=== PATIENT | male | born 1945 | race African-American/Black ===

== ENCOUNTER 2017-05-19 11:59 | Emergency (ER) | payer MEDICARE, MEDICAID ==
[2017-05-19] MEDS ORDERED: cefTRIAXone(*) 1 GM in NS 0.9% 50 ML* 50 ML IVPB ONE (13:04)
[2017-05-19] MEDS ORDERED: Azithromycin IV(*) 500 MG in NS 0.9% 250 ML* 250 ML IVPB ONE (13:04)
[2017-05-19] MEDS ORDERED: NS 0.9% 1000 ML* 1,000 ML IV ONE (13:05)
[2017-05-19] MEDS ORDERED: methylPREDNISolone 125 MG* 2 ML VIAL IV ONE (13:07)
[2017-05-19] MEDS ORDERED: Albuterol/Ipratropium NEB.SOL* Albuterol 2.5 MG/Ipratropium 0.5 MG 3 ML INH ONE (13:17)
[2017-05-19 13:23] LABS: ABS Basophils 0 10^3/ul (0-0.2); ABS Eosinophils 0 10^3/ul (0-0.6); ABS Lymphocytes 0.2 10^3/ul (1.0-4.8); ABS Monocytes 0.8 10^3/ul (0-0.8); ABS Neutrophils 5.8 10^3/ul (1.5-7.7); ABS Nucleated RBC 0 10^3/ul; Eosinophil % 0 % (0-6); Hematocrit 44 % (42-52); Hemoglobin 15.3 g/dl (14.0-18.0); Lymphocyte % 2.7 % (25-47); Mean Corpuscular HGB Conc 35 g/dl (31-36); Mean Corpuscular Hemoglobin 33 pg (27-31); Mean Corpuscular Volume 96 fL (80-94); Mean Platelet Volume 8.3 um3 (7.4-10.4); Nucleated Red Blood Cells % 0; Platelet Count 164 10^3/ul (150-450); Red Cell Distribution Width 14 % (10.5-15); White Blood Count 6.8 10^3/ul (3.5-10.8)
--- NOTE | 2017-05-19 13:31 | RAD ---
INDICATION: Shortness of breath. COMPARISON: None TECHNIQUE: PA and lateral views of the chest were obtained. FINDINGS: The heart and mediastinum are normal in size and contour. On the AP view the lungs appear hyperaerated. On the lateral view the diaphragm are flattened and there is an increased retrosternal airspace. Also the lateral view there is density obscuring the left costophrenic angle. On the AP view there is only a slight degree of costophrenic angle blunting. Visualized bones are normal for the patient's age. There is no radiographic evidence of free air beneath the diaphragm IMPRESSION: 1. DENSITY CAUSING A SMALL DEGREE OF LEFT POSTERIOR LUNG BASE COSTOPHRENIC ANGLE BLUNTING COULD BE A SMALL PLEURAL EFFUSION AND/OR CONSOLIDATION. 2. STIGMATA OF CHRONIC OBSTRUCTIVE PULMONARY DISEASE IS NOTED.
[2017-05-19 13:41] LABS: EGFR Non-African American 121.4 (>60)
--- NOTE | 2017-05-19 15:00 | ED ---
Vianca Pelayo Emily, scribed for oTrito De Leon MD on 05/19/17 at 1309 . Shortness of Breath - HPI Summary HPI Summary: This patient is a 71 year old M presenting to [facility] with a chief complaint of SOB that began yesterday. The patient rates the pain 0/10 in severity. Symptoms aggravated by nothing. Symptoms alleviated by nothing. Patient reports cough ( coronado-yellow phlegm, that began 3 days ago) and weakness. Patient denies CP. - History of Current Complaint Chief Complaint: EDShortnessOfBreath Time Seen by Provider: 05/19/17 12:49 Hx Obtained From: Patient Onset/Duration: Sudden Onset, Lasting Days, Still Present Timing: Constant Current Severity: Mild Aggrevating Factors: Nothing Alleviating Factors: Nothing Associated Signs & Symptoms: Cough (Productive) - Allergy/Home Medications Allergies/Adverse Reactions: Allergies Allergy/AdvReac Type Severity Reaction Status Date / Time No Known Allergies Allergy Verified 05/19/17 12:29 PMH/Surg Hx/FS Hx/Imm Hx Previously Healthy: Yes Opthamlomology History: Denies: Hx Legally Blind EENT History: Denies: Hx Deafness Infectious Disease History: No Infectious Disease History: Denies: Traveled Outside the [place] in Last 30 Days - Family History Known Family History: Positive: Other - Negative kidney stones - Social History Occupation: Retired Lives: Alone Alcohol Use: None Hx Substance Use: Yes Substance Use Type: Reports: Marijuana Smoking Status (MU): Never Smoked Tobacco Review of Systems Negative: Chest Pain Positive: Shortness Of Breath, Cough Positive: Weakness All Other Systems Reviewed And Are Negative: Yes Physical Exam - Summary Physical Exam Summary: Appearance: Well-appearing, Well-nourished Skin: Warm Eyes: Normal ENT: Normal Neck: Supple, nontender Respiratory: Bilateral diffuse expiratory wheezes. 2L nasal cannula. Cardiovascular: Regular rate, regular rhythm. Normal S1, S2. Abdomen: Soft, nontender Musculoskeletal: Normal, Strength/ROM Intact Neurological: Normal, A&Ox3 Psychiatric: Normal General: No acute distress Triage Information Reviewed: Yes Vital Signs On Initial Exam: Initial Vitals Temp Pulse Resp BP Pulse Ox 98.7 F 107 22 144/101 93 05/19/17 12:04 05/19/17 12:04 05/19/17 12:04 05/19/17 12:04 05/19/17 12:04 Vital Signs Reviewed: Yes Diagnostics - Vital Signs Vital Signs Temp Pulse Resp BP Pulse Ox 05/19/17 12:04 98.7 F 107 22 144/101 93 - Laboratory Lab Results: Lab Results 05/19/17 05/19/17 Range/Units 13:10 13:10 WBC 6.8 (3.5-10.8) 10^3/ul RBC 4.60 (4.0-5.4) 10^6/ul Hgb 15.3 (14.0-18.0) g/dl Hct 44 (42-52) % MCV 96 H (80-94) fL MCH 33 H (27-31) pg MCHC 35 (31-36) g/dl RDW 14 (10.5-15) % Plt Count 164 (150-450) 10^3/ul MPV 8.3 (7.4-10.4) um3 Neut % (Auto) 85.7 H (38-83) % Lymph % (Auto) 2.7 L (25-47) % Hooker % (Auto) 11.4 H (0-7) % Eos % (Auto) 0 (0-6) % Baso % (Auto) 0.2 (0-2) % Absolute Neuts (auto) 5.8 (1.5-7.7) 10^3/ul Absolute Lymphs (auto) 0.2 L (1.0-4.8) 10^3/ul Absolute Monos (auto) 0.8 (0-0.8) 10^3/ul Absolute Eos (auto) 0 (0-0.6) 10^3/ul Absolute Basos (auto) 0 (0-0.2) 10^3/ul Absolute Nucleated RBC 0 10^3/ul Nucleated RBC % 0 Sodium 135 L (139-145) mmol/L Potassium 3.2 L (3.5-5.0) mmol/L Chloride 95 L (101-111) mmol/L Carbon Dioxide 29 (22-32) mmol/L Anion Gap 11 (2-11) mmol/L BUN 8 (6-24) mg/dL Creatinine 0.65 L (0.67-1.17) mg/dL Est GFR ( Amer) 156.2 (>60) Est GFR (Non-Af Amer) 121.4 (>60) BUN/Creatinine Ratio 12.3 (8-20) Glucose 129 H (70-100) mg/dL Calcium 8.9 (8.6-10.3) mg/dL Total Bilirubin 0.60 (0.2-1.0) mg/dL AST 106 H (13-39) U/L ALT 21 (7-52) U/L Alkaline Phosphatase 62 (34-104) U/L Troponin I 0.02 (<0.04) ng/mL Total Protein 7.9 (6.4-8.9) g/dL Albumin 3.9 (3.2-5.2) g/dL Globulin 4.0 (2-4) g/dL Albumin/Globulin Ratio 1.0 (1-3) Result Diagrams: 05/19/17 13:10 05/19/17 13:10 Lab Statement: Any lab studies that have been ordered have been reviewed, and results considered in the medical decision making process. - Radiology CXR Radiology Interpretation Completed By: Radiologist - CXR reveals, per radiologist, 1. DENSITY CAUSING A SMALL DEGREE OF LEFT POSTERIOR LUNG BASE COSTOPHRENIC ANGLE BLUNTING COULD BE A SMALL PLEURAL EFFUSION AND/OR CONSOLIDATION. 2. STIGMATA OF CHRONIC OBSTRUCTIVE PULMONARY DISEASE IS NOTED. ED physician has reviewed this radiology report. Course/Dx - Course Course Of Treatment: CXR B/L perihilar densities, increased lung volumes likely COPD. labs unremarkable - Diagnoses Provider Diagnoses: Bronchitis, COPD exacerbation Discharge - Sign-Out/Discharge Documenting (check all that apply): Discharge - Discharge Plan Condition: Stable Disposition: HOME Prescriptions: Levofloxacin TAB* [Levaquin TAB*] 500 mg PO DAILY 7 Days #7 tab predniSONE [Prednisone] 20 mg PO DAILY 5 Days #5 tablet Patient Education Materials: Acute Bronchitis (ED), COPD (Chronic Obstructive Pulmonary Disease) (ED) Referrals: Filemon Acevedo MD [Primary Care Provider] - - Billing Disposition and Condition Condition: STABLE Disposition: HOME The documentation as recorded by the Vianca escobar Emily accurately reflects the service I personally performed and the decisions made by Moises valderrama Euni, MD.
[2017-05-19 15:08] VITALS: BP 143/88
== END 2017-05-19 15:15 | disposition home or self-care (01) ==
LOC: ED 11:59
DX: J44.1 Chronic obstructive pulmonary disease with (acute) exacerbation (principal); R05 Cough; R53.1 Weakness
CPT/HCPCS: 36415; 71046; 80053; 84484; 85025; 87040; 96365; 96375; 99284; A9270-GY; J0456; J0696; J2930

== ENCOUNTER 2019-02-04 00:58 | Emergency (ER) | payer MEDICARE, MEDICAID ==
--- NOTE | 2019-02-04 01:22 | ED ---
Shortness of Breath - HPI Summary HPI Summary: 73 y/o male presented to [facility] complaining of SOB that started yesterday. He characterizes his symptoms as being tired and having no energy. He does not claim to have a fever or rhinorrhea. Patient was seen previously for a similar issue roughly a year ago and discharged. He smokes marijuana but has not smoked today due to his respiratory complaints. He drinks alcohol daily and had roughly 3 servings today, but does not think his symptoms are due to withdrawal. He notes no history of heart or lung problems and notes no family history related to the CC. - History of Current Complaint Chief Complaint: EDUpperRespComplaint Time Seen by Provider: 02/04/19 01:08 Hx Obtained From: Patient Onset/Duration: Lasting Days, Still Present Timing: Intermittent Episodes Lasting: - only on exertion Dyspnea At: Exertion Aggravating Factors: Other - exertion Alleviating Factors: Other - rest Associated Signs & Symptoms: Negative - Allergy/Home Medications Allergies/Adverse Reactions: Allergies Allergy/AdvReac Type Severity Reaction Status Date / Time No Known Allergies Allergy Verified 02/04/19 01:00 PMH/Surg Hx/FS Hx/Imm Hx Cardiovascular History: Denies: Hx Cardiac Arrest, Hx Congenital Heart Disease, Hx Congestive Heart Failure, Hx Coronary Artery Disease Sensory History: Denies: Hx Legally Blind, Hx Deafness Opthamlomology History: Denies: Hx Legally Blind - Surgical History Surgical History: None Infectious Disease History: No Infectious Disease History: Denies: Traveled Outside the [place] in Last 30 Days - Family History Known Family History: Positive: Other - Negative kidney stones Negative: Cardiac Disease - Social History Alcohol Use: None Hx Substance Use: Yes Substance Use Type: Reports: Marijuana Smoking Status (MU): Never Smoked Tobacco Review of Systems Negative: Fever Negative: Nasal Discharge Positive: Shortness Of Breath - on exertion All Other Systems Reviewed And Are Negative: Yes Physical Exam - Summary Physical Exam Summary: Constitutional: Well-developed, Well-nourished, Alert. (-) Distressed, Elderly, Thin Skin: Warm, Dry HENT: Normocephalic; Atraumatic Eyes: Conjunctiva normal Neck: Musculoskeletal ROM normal neck. (+) JVD, (-) Stridor, (-) Nuchal rigidity Cardio: Rhythm regular, rate normal, Heart sounds normal; Intact distal pulses; Radial pulses are 2+ and symmetric. (-) Murmur Pulmonary/Chest wall: Effort normal. (-) Respiratory distress, (-) Wheezes, (-) Rales. Abd: Soft, (-) tenderness, (-) Distension, (-) Guarding, (-) Rebound Musculoskeletal: (-) Edema Neuro: Alert, Oriented x3 Psych: Mood and affect Normal Triage Information Reviewed: Yes Vital Signs On Initial Exam: Initial Vitals Temp Pulse Resp BP Pulse Ox 98.5 F 104 32 174/109 88 02/04/19 00:58 02/04/19 00:58 02/04/19 00:58 02/04/19 00:58 02/04/19 00:58 Vital Signs Reviewed: Yes Procedures - Sedation Patient Received Moderate/Deep Sedation with Procedure: No Diagnostics - Vital Signs Vital Signs Temp Pulse Resp BP Pulse Ox 02/04/19 01:08 92 18 165/96 91 02/04/19 01:07 89 19 91 02/04/19 00:58 98.5 F 104 32 174/109 88 - Laboratory Result Diagrams: 02/04/19 01:37 02/04/19 01:37 Lab Statement: Any lab studies that have been ordered have been reviewed, and results considered in the medical decision making process. - Radiology CXR Radiology Interpretation Completed By: ED Physician Summary of Radiographic Findings: Decreased lung marking in left lower lobe. Concern for bleb. This imaging study has been reviewed and interpreted by the ED physician pending official read. - CT chest/thorax CT Interpretation Completed By: Radiologist Summary of CT Findings: IMPRESSION: 1. No acute pulmonary embolic disease. 2. Extensive centrilobular emphysema with a large air-filled cyst/bulla located. in left lower lung. 3. No pulmonary consolidation. 4. 7 mm nodule in the left lower lung. This report was reviewed by the ED physician. - EKG 0114 Cardiac Rate: NL - 91 bpm EKG Rhythm: Sinus Rhythm Summary of EKG Findings: An EKG at 0114 reveals normal sinus rhythm at 91bpm, nml axis, nml intervals. No STEMI. No acute changes. Consistent with LVH and no prior. This EKG has been reviewed and interpreted by the ED physician. Re-Evaluation - Re-Evaluation First Eval Re-Evaluation Time: 03:20 Comment: Discussed plan for admission, patient agrees with plan Course/Dx - Course Course Of Treatment: 73-year-old male with a history of alcohol use who presents with acute shortness of breath and fatigue over the past several days. Hypoxic to 88% on room air. Patientss prior oxygen saturations around 92. Patient reporting fatigue, shortness of breath with exertion. Denies chest pain. Check labs including CBC to assess for infection, troponin, BMP. Chest x -ray to assess for infiltrates. CXR here w ?LLL bleb (dec lung markings). CT shows 11 cm bleb. plan for transfer to for CT surgery as patient may need bleb resection - Diagnoses Provider Diagnoses: Bleb, lung - Physician Notifications Discussed Care of Patient With: Lianet Steel Time Discussed With Above Provider: 03:47 Instructed by Provider To: Other - The patient's case was discussed with Dr. Steel. After discussion, Dr. Steel would like to involve CT surgery. The patient's case was discussed at 04:[address] Mayorga, Mortuary Beautician, who will consult on the patient. Dr. Steel, Hospitalist, has accepted the patient. Reason For Transfer: [place]ty [place] service [place] available [place] [facility] [place] - Sign-Out/Discharge Documenting (check all that apply): Patient Departure - Patient accepted for transfer to [facility]. - Discharge Plan Condition: Stable Disposition: TRANS HIGHER LVL OF CARE FAC Referrals: Filemon Acevedo MD [Primary Care Provider] - - Billing Disposition and Condition Condition: STABLE Disposition: Trans Higher Lvl of Care Fac - Attestation Statements Document Initiated by Susannah: Yes Documenting Scribe: Shelley Hilton Provider For Whom Susannah is Documenting (Include Credential): MD Laura Polancoibe Attestation: Shelley Pelayo scribed for Dr. Eden Rockwell MD on 02/04/19 at 0458. Scribe Documentation Reviewed: Yes Provider Attestation: The documentation as recorded by the Shelley escobar accurately reflects the service I personally performed and the decisions made by me, Dr. Eden Rockwell MD Status of Scribe Document: Viewed
--- OUTSIDE RECORDS SUMMARY | 2019-02-04 01:56 | XMS REPORT | Continuity of Care Document ---
:1945 External Reference #:[id number] Author Name Kim Fernandez PA-C Address [address] [place] [address] Care Team Providers Name Role Phone Filemon Acevedo MD Care Team Information Modeling Agent [phone] Problems Active Problems Provider Date Liver function tests abnormal Filemon Acevedo MD Onset: 03/22/2017 Pure hypercholesterolemia Filemon Acevedo MD Onset: 03/20/2011 Impaired fasting glycaemia Filemon Acevedo MD Onset: 03/20/2011 History of polyp of colon Kim Fernandez PA-C Onset: 01/21/2018 Alcoholic fatty liver Kim Fernandez PA-C Onset: 01/21/2018 Elevated levels of transaminase & lactic Kim Fernandez PA-C Onset: acid dehydrogenase Social History Type Date Description Comments Sex Unknown ETOH Use Currently consumes alcohol Tobacco Use Start: Unknown End: Unknown Patient is a former smoker Smoking Status Reviewed: 12/25/18 Patient is a former smoker Allergies, Adverse Reactions, Alerts Description No Known Drug Allergies Medications Active Medications SIG Qnty Indications Ordering Provider Date Aleve 220mg prn Unknown Capsules Immunizations CPT Code Status Date Vaccine Lot # [id number] Given 06/09/2014 Pneumococcal Conjugate Vaccine 13 Valent For Intramuscular Use 53734 Given 06/03/2013 Zoster Shingles Vaccine For Subcutaneous Injection 48271 Given 03/21/2012 Pneumovax 55036 Given 03/16/2010 Td Preservative Free For Use In Individuals 7 Yrs Or Older 89797 Given 03/16/2010 Td Preservative Free For Use In Individuals 7 Yrs Or Older Vital Signs Date Vital Result Comment 12/25/2018 10:40am Height 69 inches 5'9" Weight 132.00 lb BMI (Body Mass Index) 19.5 kg/m2 01/21/2018 2:53pm Height 69 inches 5'9" Weight 136.00 lb BP Systolic 131 mmHg BP Diastolic 87 mmHg Heart Rate 70 /min BMI (Body Mass Index) 20.1 kg/m2 Results Test Acquired Date Facility Test Result H/L Range Note Liver Function 12/24/2018 [facility] Total Protein 7.1 g/dL Normal 6.4-8.9 Panel Albumin 4.2 g/dL Normal 3.2-5.2 Globulin 2.9 g/dL Normal 2-4 Albumin/Globulin Ratio 1.4 Normal 1-3 Total Bilirubin 0.80 mg/dL Normal 0.2-1.0 Direct Bilirubin 0.20 mg/dL High 0.03-0.18 Indirect Bilirubin 0.6 mg/dL Normal 0.3-1.0 Alkaline Phosphatase 63 U/L Normal 34-104 Alt 21 U/L Normal 7-52 Ast 92 U/L High 13-39 Procedures Description No Information Available Medical Devices Description No Information Available Encounters Description No Information Available Assessments Date Code Description Provider 12/25/2018 K70.0 Alcoholic fatty liver BINTA BrownC Plan of Treatment Future Appointment(s):06/25/2019 9:00 am - Laboratory at [facility]12/25/2018 - RADHA Brown-CK70.0 Alcoholic fatty liver Functional Status Description No Information Available Mental Status Description No Information Available Referrals Description No Information Available
[2019-02-04 02:00] LABS: ABS Lymphocytes 0.8 10^3/ul (1.0-4.8); ABS Monocytes 1.3 10^3/ul (0-0.8); ABS Neutrophils 6.9 10^3/ul (1.5-7.7); Hematocrit 44 % (42-52); Hemoglobin 14.9 g/dL (14.0-18.0); Lymphocyte % 9.2 %; Mean Corpuscular HGB Conc 34 g/dL (31-36); Mean Corpuscular Hemoglobin 34 pg (27-31); Mean Corpuscular Volume 100 fL (80-94); Mean Platelet Volume 8.7 fL (7.4-10.4); Platelet Count 182 10^3/uL (150-450); Red Blood Count 4.39 10^6 /uL (4.18-5.48); Red Cell Distribution Width 13 % (10-15)
[2019-02-04 02:19] LABS: Albumin 4.4 g/dL (3.2-5.2); Albumin/Globulin Ratio 1.3 (1-3); BUN/Creatinine Ratio 10.9 (8-20); Calcium 9.6 mg/dL (8.6-10.3); EGFR African American 177.2 (>60); EGFR Non-African American 146.4 (>60); Globulin 3.4 g/dL (2-4); Magnesium 1.6 mg/dL (1.9-2.7); Potassium 3.4 mmol/L (3.5-5.0); Total Bilirubin 1.1 mg/dL (0.2-1.0); Total Protein 7.8 g/dL (6.4-8.9)
[2019-02-04 02:21] LABS: Troponin I 0.02 ng/mL (<0.03)
[2019-02-04] MEDS ORDERED: Magnesium Sulf 4 GM/100 ML IV* 4,000 MG/100 ML BAG IVPB ONE (02:22)
[2019-02-04] MEDS ORDERED: Iohexol 350* (CONTRAST) 500 ML MDV IV ONE (02:28)
[2019-02-04] MEDS ORDERED: Potassium Chlor TAB* 20 MEQ TAB.ER PO ONE (04:18)
[2019-02-04 13:15] VITALS: BP 122/80
== END 2019-02-04 13:14 | disposition short-term general hospital (02) ==
LOC: ED 00:58
DX: J43.9 Emphysema, unspecified (principal); R91.1 Solitary pulmonary nodule
CPT/HCPCS: 36415; 71046; 71275; 80053; 83735; 83880; 84484; 85025; 93005; 96365; 96366; 99285; A9270-GY; J3475; Q9967